=== PATIENT | female | born 1950 | race Caucasian/White ===

== ENCOUNTER 2017-05-27 13:45 | Outpatient (CLI) | payer BC ==
[2017-05-27 17:49] LABS: BILIRUBIN,URINE NEGATIVE (NEGATIVE)
[2017-05-27 17:57] LABS: UA w/ MICROSCOPIC CHARGE YES
[2017-05-27 18:29] LABS: UR CULTURE IF IND INDICATED; WBC,URINE 0-3 /HPF (0-5)
== END 2017-05-27 13:46 | disposition home or self-care (01) ==
LOC: LAB.F 13:45
PROVIDERS: ATTEND Internal Medicine
DX: I10 Essential (primary) hypertension (principal)
CPT/HCPCS: 81001; 81003; 82043; 82570; 87086

== ENCOUNTER 2017-06-21 12:55 | Outpatient (CLI) | payer MEDICARE, OTHER ==
--- NOTE | 2017-06-21 14:26 | MRI Report ---
EXAM: MRI CERVICAL SPINE WITHOUT CONTRAST EXAM DATE: 06/21/2017 01:38 PM. CLINICAL HISTORY: NECK PAIN. COMPARISONS: None. TECHNIQUE: Multiplanar, multisequence T1-weighted and fluid-sensitive sequences of the cervical spine without contrast. Other: None. FINDINGS: Neurologic Structures: The visualized posterior fossa structures are unremarkable. No signal abnormal ity in the visualized spinal cord. Alignment: Grade 1 anterolisthesis C6 on C7 measuring 2 mm. Bone Marrow: No gross fractures or bone lesions. No marrow edema. Interspace Levels/Facets: C1-C2: Unremarkable. C2-C3: Unremarkable. C3-C4: Unremarkable. C4-C5: Moderate left facet arthropathy. Minimal disk bulge with mild anterior neural compression. Mil d to moderate left neuroforaminal narrowing. No right neuroforaminal narrowing. No central canal narr owing. C5-C6: Mild diffuse disk bulge. Mild anterior neural compression. Moderate right and nwli-lb-wmlxgyol left facet arthropathy. Mild bilateral neuroforaminal narrowing. No significant central canal narrow ing. C6-C7: Moderate diffuse disk bulge with superimposed right subarticular protrusion. Mild central andrew l narrowing with mild flattening of the cord. Moderate right lateral recess narrowing. Mild right brandie roforaminal narrowing. No left neuroforaminal narrowing. C7-T1: Unremarkable. Musculature: Normal. No edema or fatty atrophy. Other: The paravertebral and prevertebral soft tissues are normal. IMPRESSION: 1. Mild multilevel degenerative spondylosis, as detailed above, mainly affecting level CIV-C5 through C6-C7. Mild central canal narrowing and moderate right lateral recess narrowing at C6-C7 level. No s ignificant central narrowing at other cervical levels. 2. Wfur-ui-ruhpgtav left neuroforaminal narrowing at C4-C5 level. Mild bilateral neuroforaminal narro wing at C5-C6 level. Mild right neuroforaminal narrowing at C6-C7 level. No significant cervical neur oforaminal narrowing otherwise. [facility] Referring Provider Line: [phone] SITE ID: [id number]
== END 2017-06-21 12:56 | disposition home or self-care (01) ==
LOC: DI 12:55
PROVIDERS: ATTEND Internal Medicine
DX: M54.2 Cervicalgia (principal); M47.892 Other spondylosis, cervical region; M48.02 Spinal stenosis, cervical region; M99.51 Intervertebral disc stenosis of neural canal of cervical region
CPT/HCPCS: 72141

== ENCOUNTER 2017-06-21 13:09 | Outpatient (CLI) | payer MEDICARE, OTHER ==
--- NOTE | 2017-06-22 13:16 | Mammography Report ---
DIGITAL SCREENING MAMMOGRAM: 06/21/2017 CLINICAL INDICATION: A 66-year-old nulliparous patient with history of left breast cancer status pos t lumpectomy and radiation therapy. COMPARISON: 05/2016, 06/2015, 01/2015, 05/2014, 05/2013, 03/2012, 04/2011, 01/2010 TECHNIQUE: Routine CC and MLO projections were obtained of the breasts. FINDINGS: The breasts again demonstrate heterogeneously dense fibroglandular parenchyma bilaterally. Coarse and punctate, typically benign calcifications are present. Postoperative and post-treatment changes are stable. No suspicious masses, clustered microcalcifications, or regions of architectura l distortion are identified. IMPRESSION: BENIGN FINDINGS. RECOMMENDATION: Routine annual screening unless otherwise clinically indicated. BIRADS CATEGORY 2 - BENIGN FINDINGS. STANDARD QUALIFYING STATEMENTS 1. This examination was reviewed with the aid of Computer-Aided Detection (CAD). 2. A negative or benign imaging report should not delay biopsy if clinically suspicious findings are present. Consider surgical consultation if warranted. More than 5% of cancers are not identified by i maging. 3. Dense breasts may obscure an underlying neoplasm. JOB #: [id number] EXT JOB #:[id number]
== END 2017-06-21 13:10 | disposition home or self-care (01) ==
LOC: DI 13:09
PROVIDERS: ATTEND Internal Medicine
DX: Z12.31 Encounter for screening mammogram for malignant neoplasm of breast (principal); Z85.3 Personal history of malignant neoplasm of breast; Z92.3 Personal history of irradiation
CPT/HCPCS: 77067

== ENCOUNTER 2017-07-06 10:45 | Outpatient (CLI) | payer MEDICARE, OTHER ==
--- NOTE | 2017-07-06 16:58 | XRAY Report ---
CERVICAL SPINE: 07/06/2017 CLINICAL HISTORY: Neck pain. FINDINGS: Lateral views of the cervical spine are performed in neutral, flexion , and extension with comparison to the MRI of the cervical spine from 2016. There is grade I anterolisthesis of C3 on C4, C5 on C6 and C6 on C7. The disk space heights are grossly well maintained. The vertebral body offsets reduce in extension. There is approximately 2 mm of anterior motion of C3 on C4, C4 on C5 , C5 on C6 and C6 on C7 in flexion, within accepable range. IMPRESSION: NO ABNORMAL MOTION BETWEEN FLEXION AND EXTENSION. JOB #: [id number] EXT JOB #: [id number] [facility]ITALCurtis
== END 2017-07-06 10:46 | disposition home or self-care (01) ==
LOC: DI 10:45
PROVIDERS: ATTEND Physician Assistant Surgical
DX: M54.2 Cervicalgia (principal)
CPT/HCPCS: 72040

== ENCOUNTER 2018-02-01 12:11 | Outpatient (CLI) | payer MEDICARE, OTHER ==
--- NOTE | 2018-02-01 12:55 | XRAY Report ---
THREE VIEW RIGHT ANKLE: 02/01/2018 CLINICAL INDICATION: Trauma, pain. FINDINGS: AP, lateral, oblique views of the right ankle demonstrate no evidence of fracture or dislocation. No effusion is present. No foreign body is seen in the soft tissues. IMPRESSION: NO EVIDENCE OF FRACTURE. TD: 02/01/2018 12:54
--- NOTE | 2018-02-01 13:06 | XRAY Report ---
THREE VIEW RIGHT FOOT: 02/01/2018 CLINICAL INDICATION: Pain. FINDINGS: AP, lateral, oblique views of the right foot demonstrate mild osteoarthritis of the first metatarsophalangeal joint, with mild hallux valgus. There is no evidence of acute fracture or dislocation. No foreign body is seen in the soft tissues. IMPRESSION: MILD OSTEOARTHRITIS, WITH HALLUX VALGUS. NO EVIDENCE OF ACUTE FRACTURE. TD: 02/01/2018 13:05
== END 2018-02-01 12:12 | disposition home or self-care (01) ==
LOC: DI 12:11
PROVIDERS: ATTEND Internal Medicine
DX: M19.071 Primary osteoarthritis, right ankle and foot (principal); M20.11 Hallux valgus (acquired), right foot

== ENCOUNTER 2018-04-10 13:12 | Outpatient (CLI) | END 2018-04-10 13:13 | disposition home or self-care (01) ==

== ENCOUNTER 2018-05-15 14:26 | Outpatient (CLI) | payer MEDICARE, OTHER ==
--- NOTE | 2018-05-15 16:35 | MRI Report ---
Procedure Date: 05/15/2018 Accession Number: [id number] / [id number] Procedure: MRI - Cervical Spine W/O CPT Code: FULL RESULT: EXAM: MRI CERVICAL SPINE WITHOUT CONTRAST EXAM DATE: 05/15/2018 02:59 PM. CLINICAL HISTORY: Chronic neck pain. COMPARISONS: CERVICAL SPINE W/O 06/21/2017. TECHNIQUE: Multiplanar, multisequence T1-weighted and fluid-sensitive sequences of the cervical spine without contrast. Other: None. FINDINGS: Alignment: There is flattening of the cervical lordosis. There is a 2 mm anterolisthesis at C6-C7. Neurologic Structures: The visualized posterior fossa structures are unremarkable. There is mild effacement of the ventral surface of the sac and cord at C6-C7. Bone Marrow: There is marrow edema in the articular processes of the C5-C6 and C6-C7 facet joints on the left. Interspace Levels/Facets: C1-C2: Unremarkable. C2-C3: Mild bilateral facet joint osteoarthritis. Neural foramina are patent. C3-C4: Moderate right and mild left facet joint osteoarthritis. Mild right and minimal left foraminal narrowing. C4-C5: There is moderate left and mild right facet joint osteoarthritis. There is moderate left and mild right foraminal narrowing. C5-C6: There is mild bilateral facet joint osteoarthritis. There is mild bilateral foraminal narrowing. C6-C7: There is a broad-based posterior disk osteophyte complex. There is moderate left and mild right facet joint osteoarthritis. The findings cause mild canal narrowing. There is a moderate-sized left-sided facet joint effusion. There is severe left and mild right foraminal narrowing. C7-T1: There is mild bilateral facet joint osteoarthrosis. The canal and foramina are patent. Musculature: Normal. No edema or fatty atrophy. Other: The paravertebral and prevertebral soft tissues are normal. IMPRESSION: 1. Multilevel facet joint degeneration. 2. Mild canal narrowing at C6-C7. 3. Facet joint osteoarthritis causes moderate left foraminal narrowing at C4-C5, and severe left foraminal narrowing at C6-C7. [facility]
== END 2018-05-15 14:27 | disposition home or self-care (01) ==
LOC: DI 14:26
PROVIDERS: ATTEND Internal Medicine
DX: M47.892 Other spondylosis, cervical region (principal); M48.02 Spinal stenosis, cervical region
CPT/HCPCS: 72141

== ENCOUNTER 2018-06-14 08:15 | Outpatient (CLI) | payer MEDICARE, OTHER ==
--- NOTE | 2018-06-15 17:55 | MRI Report ---
Reason: MYELOPATHY Procedure Date: 06/14/2018 Accession Number: [id number] / [id number] Procedure: MRI - Brain W/O CPT Code: FULL RESULT: EXAM: MRI BRAIN WITHOUT CONTRAST EXAM DATE: 06/14/2018 09:05 AM. CLINICAL HISTORY: Myelopathy. COMPARISON: CT head 05/25/2015, MR cervical spine 05/15/2018. TECHNIQUE: Multiplanar, multisequence T1-weighted and fluid-sensitive MR sequences of the brain were performed. Sequences optimized for routine evaluation. Other: None. IV Contrast: None. FINDINGS: Diffusion weighted sequence shows no evidence for acute infarct. There is no mass, mass effect, midline shift or abnormal extraaxial fluid collection. Size and configuration of the ventricles are normal. Mild prominence of the cerebral sulci bilaterally compatible with mild diffuse cerebral volume loss. There is a nonspecific T2 hyperintensity in the periventricular right frontal lobe measuring 7.3 mm. Ill-defined symmetric T2 hyperintensity in the peritrigonal parietal periventricular white matter demonstrated, most likely chronic microvascular angiopathy. Brainstem and cerebellum appear normal. Major intracranial flow voids appear normal. Globes, orbits, optic nerve sheath complex, optic chiasm, pituitary, cavernous sinus and Meckel's cave appear normal. Paranasal sinuses and mastoid air cells appear well aerated. Marrow signal and extracranial soft tissue appear normal. Craniocervical junction and visualized upper cervical cord appear unremarkable. IMPRESSION: 1. Mild diffuse cerebral loss. 2. Focal asymmetric nonspecific T2 hyperintensity in the periventricular right frontal white matter. Ill-defined symmetric nonspecific periventricular parietal white matter T2 hyperintensity. These most likely represents chronic microvascular angiopathy. 3. No acute abnormalities. [facility]
== END 2018-06-14 08:16 | disposition home or self-care (01) ==
LOC: DI 08:15
PROVIDERS: ATTEND Neurological Surgery
DX: G95.9 Disease of spinal cord, unspecified (principal); H53.2 Diplopia
CPT/HCPCS: 70551

== ENCOUNTER 2018-07-05 09:46 | Outpatient (CLI) | payer MEDICARE, OTHER ==
--- NOTE | 2018-07-14 14:12 | Mammography Report ---
Reason: ROUTINE BILAT SCREENING WITH KASSIE Procedure Date: 07/05/2018 Accession Number: [id number] / [id number] Procedure: BRENT - Screening Mammo w/Kassie CPT Code: FULL RESULT: EXAM: Screening Mammo w/Kassie DATE: 07/05/2018 10:37 AM CLINICAL HISTORY: 67-year-old female with personal history of left breast cancer status post lumpectomy and radiation. TECHNIQUE: Bilateral CC and MLO views were obtained. COMPARISON: 02/06/2015, 06/06/2014, 06/14/2016, 06/21/2017. FINDINGS: The breasts demonstrate heterogeneously dense fibroglandular parenchyma bilaterally. Postsurgical changes are seen in the left breast. Coarse typically benign calcifications are seen bilaterally. No suspicious masses, clustered microcalcifications, or regions of architectural distortion are identified. IMPRESSION: Benign findings RECOMMENDATION: Routine annual screening unless otherwise clinically indicated. BIRADS CATEGORY 2: Benign findings STANDARD QUALIFYING STATEMENTS: 1. This examination was not reviewed with the aid of Computer-Aided Detection (CAD). 2. A negative or benign imaging report should not delay biopsy if clinically suspicious findings are present. Consider surgical consultation if warrented. More than 5% of cancers are not identified by imaging. 3. Dense breasts may obscure an underlying neoplasm. 4. This examination was reviewed with the aid of 3D breast imaging (tomosynthesis).
== END 2018-07-05 09:47 | disposition home or self-care (01) ==
LOC: DI 09:46
PROVIDERS: ATTEND Internal Medicine
DX: Z12.31 Encounter for screening mammogram for malignant neoplasm of breast (principal); Z85.3 Personal history of malignant neoplasm of breast
CPT/HCPCS: 77063; 77067

== ENCOUNTER 2018-07-27 08:00 | Outpatient (CLI) | payer MEDICARE, OTHER ==
[2018-07-27 18:02] LABS: CALCIUM 9.3 mg/dL (8.5-10.3); CREATININE 0.6 mg/dL (0.4-1.0)
== END 2018-07-27 08:01 | disposition home or self-care (01) ==
LOC: LAB.F 08:00
PROVIDERS: ATTEND Internal Medicine
DX: E87.1 Hypo-osmolality and hyponatremia (principal); E03.9 Hypothyroidism, unspecified; Z79.899 Other long term (current) drug therapy
CPT/HCPCS: 36415; 80048; 84443

== ENCOUNTER 2019-02-07 10:55 | Outpatient (CLI) | payer MEDICARE, OTHER ==
[2019-02-07 11:20] LABS: CREATININE 0.6 mg/dL (0.4-1.0)
[2019-02-07] MEDS ORDERED: IOVERSOL 320 100 ML VIAL IVP ONE ×2 (11:29→12:48)
[2019-02-07] MEDS ORDERED: IOVERSOL 320 50 ML VIAL ONE (11:29)
[2019-02-07] MEDS ORDERED: IOVERSOL 320 50 ML VIAL PO ONE (12:56)
--- NOTE | 2019-02-07 13:32 | CT Report ---
Reason: ABD AND PELVIC PAIN Procedure Date: 02/07/2019 Accession Number: [id number] / [id number] Procedure: CT - Abdomen/Pelvis W CPT Code: FULL RESULT: EXAM: CT ABDOMEN AND PELVIS EXAM DATE: 02/07/2019 12:44 PM. CLINICAL HISTORY: Abdominal and pelvic pain. COMPARISONS: None. TECHNIQUE: Routine helical CT imaging was performed through the abdomen and pelvis. IV contrast: 150 mL Optiray 320. Enteric contrast: No. Reconstructions: Coronal and sagittal. In accordance with CT protocol optimization, one or more of the following dose reduction techniques were utilized for this exam: automated exposure control, adjustment of mA and/or KV based on patient size, or use of iterative reconstructive technique. FINDINGS: Lung Bases: Unremarkable. Liver: Normal. No masses. Gallbladder/Bile Ducts: Gallbladder appears unremarkable and there is no intrahepatic biliary ductal dilation. The extrahepatic biliary system is prominent, up to 1 cm without a stone detected. Spleen: Normal. Pancreas: Normal. Adrenal Glands: Normal. Kidneys: Normal. No masses or hydronephrosis. Peritoneal Cavity/Bowel: There is descending and sigmoid colonic diverticulosis. There is no bowel obstruction. There is no free fluid or free air. There is no lymphadenopathy. The appendix is well visualized and normal. Pelvic Organs: Normal. The bladder and visualized pelvic organs are within normal limits. Vasculature: No aneurysms or other significant abnormality. Bones: Status post L4-L5 fusion. No aggressive osseous lesion is detected. Other: None. IMPRESSION: Diverticulosis. Prominent extrahepatic biliary system without evidence of cholecystitis. [facility]
== END 2019-02-07 10:56 | disposition home or self-care (01) ==
LOC: DI 10:55
PROVIDERS: ATTEND Internal Medicine
DX: K57.30 Diverticulosis of large intestine without perforation or abscess without bleeding (principal); R10.9 Unspecified abdominal pain; R10.2 Pelvic and perineal pain; R14.0 Abdominal distension (gaseous)
CPT/HCPCS: 36415; 74177; 82565; Q9967

== ENCOUNTER 2019-02-16 09:58 | Outpatient (CLI) | payer MEDICARE, OTHER ==
[2019-02-16 10:26] LABS: BASOPHILS # (AUTO) 0.1 10^3/uL (0.0-0.1); BASOPHILS % (AUTO) 1.3 %; EOSINOPHILS # (AUTO) 0.4 10^3/uL (0.0-0.7); HGB - HEMOGLOBIN 14.3 g/dL (12.0-16.0); LYMPHOCYTES # (AUTO) 2.2 10^3/uL (1.5-3.5); LYMPHOCYTES % (AUTO) 25.1 %; MEAN CORPUSCULAR HEMOGLOBIN 32.9 pg (27.0-31.0); MEAN CORPUSCULAR HGB CONC 33.1 g/dL (32.0-36.0); MEAN CORPUSCULAR VOLUME 99.4 fL (81.0-99.0); MEAN PLATELET VOLUME 7.3 fL (7.9-10.8); MONOCYTES # (AUTO) 0.4 10^3/uL (0.0-1.0); MONOCYTES % (AUTO) 4.8 %; NEUTROPHILS # (AUTO) 5.6 10^3/uL (1.5-6.6); NEUTROPHILS % (AUTO) 63.8 %; PLT - PLATELET COUNT 260 10^3/uL (130-450); RED BLOOD COUNT 4.34 10^6/uL (4.20-5.40); RED CELL DISTRIBUTION WIDTH 13.4 % (12.0-15.0); WHITE BLOOD COUNT 8.8 x10^3/uL (4.8-10.8)
[2019-02-16 10:40] LABS: ALBUMIN/GLOBULIN RATIO 1.3 (1.0-2.2); BILIRUBIN,TOTAL 0.6 mg/dL (0.2-1.0); CALCIUM 9.3 mg/dL (8.5-10.3); CREATININE 0.5 mg/dL (0.4-1.0); TOTAL PROTEIN 7.2 g/dL (6.7-8.2)
== END 2019-02-16 09:59 | disposition home or self-care (01) ==
LOC: LAB 09:58
PROVIDERS: ATTEND Internal Medicine Gastroenterology
DX: I10 Essential (primary) hypertension (principal); Z86.010 Personal history of colon polyps
CPT/HCPCS: 36415; 80053; 85025; 93005

== ENCOUNTER 2019-02-22 07:26 | Day surgery (SDC) | payer MEDICARE, OTHER ==
[2019-02-22] MEDS ORDERED: LACTATED RINGERS 1,000 ML IV ONE ×2 (07:52→09:15)
[2019-02-22] MEDS ORDERED: MIDAZOLAM 2 MG/2 ML VIAL IVP ONE (08:41)
[2019-02-22] MEDS ORDERED: fentaNYL 250 MCG/5 ML VIAL IVP ONE (08:41)
[2019-02-22 09:59] VITALS: BP 112/75
== END 2019-02-22 07:27 | disposition home or self-care (01) ==
LOC: SDS 07:26
PROVIDERS: ATTEND Internal Medicine Gastroenterology
PROC: 0DBK8ZZ Excision of Ascending Colon, Via Natural or Artificial Opening Endoscopic (ICD-10-PCS; principal; 2019-02-22 08:45)
DX: R19.4 Change in bowel habit (principal); D12.2 Benign neoplasm of ascending colon; K64.8 Other hemorrhoids; K57.30 Diverticulosis of large intestine without perforation or abscess without bleeding; I10 Essential (primary) hypertension
CPT/HCPCS: 45380; J3010; J7120

== ENCOUNTER 2019-03-14 08:00 | Outpatient (CLI) | payer MEDICARE, OTHER ==
[2019-03-14 13:07] LABS: BASOPHILS # (AUTO) 0.1 10^3/uL (0.0-0.1); BASOPHILS % (AUTO) 0.8 %; EOSINOPHILS # (AUTO) 0.5 10^3/uL (0.0-0.7); HGB - HEMOGLOBIN 13.9 g/dL (12.0-16.0); LYMPHOCYTES # (AUTO) 2.2 10^3/uL (1.5-3.5); LYMPHOCYTES % (AUTO) 24.5 %; MEAN CORPUSCULAR HEMOGLOBIN 32.8 pg (27.0-31.0); MEAN CORPUSCULAR HGB CONC 33.6 g/dL (32.0-36.0); MEAN CORPUSCULAR VOLUME 97.6 fL (81.0-99.0); MEAN PLATELET VOLUME 7.1 fL (7.9-10.8); MONOCYTES # (AUTO) 0.5 10^3/uL (0.0-1.0); MONOCYTES % (AUTO) 5.4 %; NEUTROPHILS # (AUTO) 5.9 10^3/uL (1.5-6.6); NEUTROPHILS % (AUTO) 64.3 %; PLT - PLATELET COUNT 265 10^3/uL (130-450); RED BLOOD COUNT 4.24 10^6/uL (4.20-5.40); RED CELL DISTRIBUTION WIDTH 13.6 % (12.0-15.0); WHITE BLOOD COUNT 9.2 x10^3/uL (4.8-10.8)
[2019-03-14 13:21] LABS: ALBUMIN 4.2 g/dL (3.2-5.5); ALBUMIN/GLOBULIN RATIO 1.3 (1.0-2.2); BILIRUBIN,TOTAL 0.7 mg/dL (0.2-1.0); CREATININE 0.6 mg/dL (0.4-1.0); TOTAL PROTEIN 7.4 g/dL (6.7-8.2)
[2019-03-14 13:23] LABS: BILIRUBIN,URINE NEGATIVE (NEGATIVE); GLUCOSE, URINE (UA) NEGATIVE (NEGATIVE); KETONES,URINE (UA) 15 mg/dL (NEGATIVE); LEUKOCYTE ESTERASE, URINE NEGATIVE (NEGATIVE); NITRITE,URINE NEGATIVE (NEGATIVE); OCCULT BLOOD,URINE NEGATIVE (NEGATIVE); PROTEIN,URINE NEGATIVE (NEGATIVE); UROBILINOGEN,URINE 0.2 (NORMAL) E.U./dL (NORMAL)
[2019-03-14 13:34] LABS: CLARITY,URINE CLEAR (CLEAR)
== END 2019-03-14 23:59 | disposition home or self-care (01) ==
LOC: LAB 08:00
PROVIDERS: ATTEND Internal Medicine
DX: R50.9 Fever, unspecified (principal); R10.9 Unspecified abdominal pain
CPT/HCPCS: 36415; 80053; 81001; 81003; 85025; 87040; 87086

== ENCOUNTER 2019-03-14 12:40 | Outpatient (CLI) | payer MEDICARE, OTHER ==
[2019-03-14] MEDS ORDERED: IOVERSOL 320 50 ML VIAL ONE (12:52)
[2019-03-14] MEDS ORDERED: IOVERSOL 320 100 ML VIAL IVP ONE ×2 (12:52→14:09)
--- NOTE | 2019-03-14 14:39 | CT Report ---
Reason: ABDOMINAL PAIN,FEVER Procedure Date: 03/14/2019 Accession Number: [id number] / [id number] Procedure: CT - Abdomen/Pelvis W CPT Code: FULL RESULT: EXAM: CT ABDOMEN AND PELVIS EXAM DATE: 03/14/2019 02:06 PM. CLINICAL HISTORY: ABDOMINAL PAIN,FEVER. COMPARISONS: ABDOMEN/PELVIS W/ 02/07/2019 12:35 PM. TECHNIQUE: Routine helical CT imaging was performed through the abdomen and pelvis. IV contrast: . Enteric contrast: No. Reconstructions: Coronal and sagittal. In accordance with CT protocol optimization, one or more of the following dose reduction techniques were utilized for this exam: automated exposure control, adjustment of mA and/or KV based on patient size, or use of iterative reconstructive technique. FINDINGS: Lung Bases: Unremarkable. Liver: Normal. No masses. Gallbladder/Bile Ducts: Unremarkable. Spleen: Normal. Pancreas: Normal. Adrenal Glands: Normal. Kidneys: And ill-defined hypodense subcentimeter lesion in the superior pole of left kidney measuring 8 mm, unchanged since [id number]. Hemorrhagic cyst versus solid neoplasm. Further correlation to be performed on ultrasound kidney. No masses or hydronephrosis. Peritoneal Cavity/Bowel: Normal. No free fluid, free air or adenopathy. No masses or acute inflammatory process. The appendix is well visualized, contrast-filled and normal. Diffuse colonic diverticulosis however no diverticulitis. Pelvic Organs: Normal. The bladder and visualized pelvic organs are within normal limits. Vasculature: No aneurysms or other significant abnormality. Bones: Status post posterior fusion at L4-L5 with well-positioned hardware. No acute displaced fracture or malalignment. Other: None. IMPRESSION: No acute abdominal pathology. Diffuse colonic diverticulosis however no diverticulitis. Normal contrast fills appendix. An unchanged 8 mm indeterminate lesion in superior pole of left kidney, hemorrhagic cyst versus solid neoplasm. Further evaluation to be considered on renal ultrasound. [facility]
== END 2019-03-14 12:41 | disposition home or self-care (01) ==
LOC: DI 12:40
PROVIDERS: ATTEND Internal Medicine
DX: R10.9 Unspecified abdominal pain (principal); K57.30 Diverticulosis of large intestine without perforation or abscess without bleeding; N28.9 Disorder of kidney and ureter, unspecified; R50.9 Fever, unspecified
CPT/HCPCS: 36415; 74177; 80053; 81003; 85025; 87040; Q9967; 81001; 87086

== ENCOUNTER 2019-03-24 10:12 | Outpatient (CLI) | payer MEDICARE, OTHER ==
--- NOTE | 2019-03-24 23:22 | Ultrasound Report ---
Reason: ABNORMAL RADIOLOGIC FINDINGS ON DX IMAGING OF LEFT Procedure Date: 03/24/2019 Accession Number: [id number] / [id number] Procedure: US - Retroperitoneal CPT Code: FULL RESULT: EXAM: RENAL ULTRASOUND EXAM DATE: 03/24/2019 11:31 AM. CLINICAL HISTORY: Abnormal radiologic findings on diagnostic imaging of left. COMPARISON: ABDOMEN/PELVIS W03/14/2019 2:00 PM. TECHNIQUE: Real-time scanning was performed with static images obtained. FINDINGS: Right Kidney: 10.0 x 4.7 x 5.2 cm. Normal echotexture with no stones, contour-deforming masses, or hydronephrosis. Left Kidney: 10.1 x 5.4 x 4.8 cm. Normal echotexture with no stones, contour-deforming masses, or hydronephrosis. 1.1 x 0.9 x 0.8 cm exophytic simple left upper renal cyst. Bladder: Bilateral jets seen. The prevoid bladder volume was 152.7 cc. The postvoid bladder volume was 54.3 cc. Other: None. IMPRESSION: 1. 1.1 cm exophytic simple left upper renal cyst. 2. No renal mass, stone or hydronephrosis. 3. Normal bladder. 54.3 cc of postvoid residual. [facility]
== END 2019-03-24 10:13 | disposition home or self-care (01) ==
LOC: DI 10:12
PROVIDERS: ATTEND Internal Medicine
DX: N28.1 Cyst of kidney, acquired (principal)
CPT/HCPCS: 76770

== ENCOUNTER 2019-04-26 08:38 | Day surgery (SDC) | payer MEDICARE, OTHER ==
[~2019-04-26 08:38] MED LIST: BRIMONIDINE 0.2% OPHTH DROPS 5 ML ONE; BSS/LIDOCAINE/EPINEPHRINE 1 ML SYRINGE ONE; CYCLOPENTOLATE 1% OPHTH DROPS 2 ML ONE; KETOROLAC 0.45% OPHTH DROPS ONE; PHENYLEPHRINE 2.5% OPHTH 2 ML DROPS ONE; PROPARACAINE 0.5% OPHTH DROPS 15 ML ONE; TIMOLOL 0.5% OPHTH DROPS ONE; TRIAMCIN/MOXIFLOX OPHTHALMIC 0.6 ML VIAL IO ONE; VANCOMYCIN OPHTHALMI 8MG/0.8ML 8 MG/0.8 ML SYRINGE IO ONE
[2019-04-26] MEDS ORDERED: CYCLOPENTOLATE 1% OPHTH DROPS 2 ML RIGHTEYE ONE (09:10)
[2019-04-26] MEDS ORDERED: PHENYLEPHRINE 2.5% OPHTH 2 ML DROPS RIGHTEYE ONE (09:10)
[2019-04-26] MEDS ORDERED: PROPARACAINE 0.5% OPHTH DROPS 15 ML RIGHTEYE ONE (09:10)
[2019-04-26] MEDS ORDERED: KETOROLAC 0.45% OPHTH DROPS RIGHTEYE ONE (09:10)
[2019-04-26] MEDS ORDERED: LACTATED RINGERS 500 ML IV ONE (09:13)
--- NOTE | 2019-04-26 09:35 | ANESTHESIA ---
Pre-Anesthesia VS, & Labs - Diagnosis right senile combined cataract - Procedure cataract extraction with intraocular implant right eye Vital Signs: Temp Pulse Resp BP Pulse Ox 36.8 C 72 16 138/72 H 97 04/26/19 09:01 04/26/19 09:01 04/26/19 09:01 04/26/19 09:01 04/26/19 09:01 Height 5 ft 3 in Weight (kg) 53.5 kg - NPO >8 hours - Is Patient ?: No Home Medications and Allergies Levothyroxine [Synthroid] 50 mcg PO DAILY 05/25/15 Lovastatin 40 mg PO DAILY 05/25/15 LORazepam [Lorazepam] 0.5 mg PO DAILY PRN 08/19/15 Ascorbic Acid [Vitamin C] 1,000 mg PO DAILY 02/22/19 Aspirin [Aspirin EC] 81 mg PO DAILY 02/22/19 Baclofen 10 mg PO TID 02/22/19 Calcium Carbonate/Vitamin D3 [Calcium 600-Vit D3 800 Tablet] 1 each PO DAILY 02/22/19 Gabapentin 100 mg PO TID 02/22/19 Lisinopril 40 mg PO DAILY 02/22/19 Multivitamin [Multiple Vitamins] 1 each PO DAILY 02/22/19 [place]el[place]-3S/Dha/Epa/Fish Oil [Fish Oil 1,200 mg Softgel] 1 each PO DAILY 02/22/19 Allergies/Adverse Reactions: Allergies Allergy/AdvReac Type Severity Reaction Status Date / Time No Known Drug Allergies Allergy Verified 02/22/19 07:53 Anes History & Medical History - Anesthetic History Anesthesia Complications: reports: No previous complications - Medical History Cardiovascular: reports: High cholesterol (controlled with meds) Pulmonary: reports: None Gastrointestinal: reports: None Urinary: reports: None Neuro: reports: Headaches, Other ( bilateral occipital neuralgia) Musculoskeletal: reports: None Endocrine/Autoimmune: reports: HyPOthyroidism Blood Disorders: reports: None Skin: reports: None Smoking Status: Former smoker (quit 10 years ago) Psychosocial: reports: Alcohol (1-2 beers per day) - Surgical History General: Colonoscopy Eyes Ears Nose Throat (EENT): Tonsil/Adenoidectomy Gynecologic: Hysterectomy Exam General: Alert, Oriented x3, Cooperative, No acute distress Dental: WNL Mouth Openin Fingerbreadth Neck Mobility: Normal Mallampati classification: II Thyromental Distance: greater than 6 cm Respiratory: Lungs clear, Normal breath sounds, No respiratory distress, No accessory muscle use Cardiovascular: Regular rate, Normal S1, Normal S2, No murmurs Mental/Cognitive Status: Alert/Oriented X3, Normal for patient Plan Anesthesia Type: MAC Consent for Procedure(s) Verified and Reviewed: Yes Code Status: Attempt Resuscitation ASA classification: 2-Mild systemic disease Is this case an emergency?: No
[2019-04-26] MEDS ORDERED: MIDAZOLAM 2 MG/2 ML VIAL IVP ONE (09:46)
[2019-04-26] MEDS ORDERED: fentaNYL 100 MCG/2 ML VIAL IVP ONE (09:46)
[2019-04-26] MEDS ORDERED: EPINEPHrine 1 MG/ML AMP IVP ONE (09:52)
[2019-04-26] MEDS ORDERED: BRIMONIDINE 0.2% OPHTH DROPS 5 ML OPTH ONE (09:52)
[2019-04-26] MEDS ORDERED: BSS/LIDOCAINE/EPINEPHRINE 1 ML SYRINGE IO ONE (09:52)
[2019-04-26] MEDS ORDERED: CHONDR SULF/HYALURONATE SYRINGE IO ONE (09:52)
[2019-04-26] MEDS ORDERED: TIMOLOL 0.5% OPHTH DROPS OPTH ONE (09:52)
[2019-04-26] MEDS ORDERED: TRIAMCIN/MOXIFLOX OPHTHALMIC 0.6 ML VIAL IO ONE (09:53)
[2019-04-26] MEDS ORDERED: VANCOMYCIN OPHTHALMI 8MG/0.8ML 8 MG/0.8 ML SYRINGE IO ONE (09:53)
[2019-04-26 10:22] VITALS: BP 126/73
--- NOTE | 2019-04-26 10:34 | OPERATIVE REPORT ---
DATE OF SERVICE: 04/26/2019 Physician: Hal Espitia MD PREOPERATIVE DIAGNOSIS: Visually significant cataract, right eye. This was her first cataract surge ry. POSTOPERATIVE DIAGNOSIS: Visually significant cataract, right eye. This was her first cataract surg giovani. DESCRIPTION OF PROCEDURE: Phacoemulsification with posterior chamber intraocular lens implant, right eye. SURGEON: Hal Espitia MD ANESTHESIA: Monitored anesthesia care. COMPLICATIONS: None. OPERATIVE INDICATIONS: This is a 68-year-old woman with progressive vision loss in the right eye due to 2+ nuclear sclerotic and 2-3+ cortical cataract. Best corrected visual acuity was 20/30 with gla re to 20/200 in the right eye. Indications for surgery are overall decrease in vision, difficulty se eing words on the computer screen, difficulty reading, difficulty seeing street signs and difficulty with glare or bright lights in any situation. She was consented at length concerning the risks and b enefits of cataract surgery, after which she expressed a desire to proceed with surgery. OPERATIVE PROCEDURE: The patient was taken into OR #3 and placed under monitored anesthesia care. S urgical timeout was conducted confirming the correct patient, correct procedure, and correct surgical site. She was given topical anesthesia, and then prepped and draped in the usual sterile fashion. The eye was entered at the 12 and 9 o'clock positions. Intracameral Shugarcaine was injected into th e anterior chamber, followed by Viscoat. A continuous-tear curvilinear capsulorrhexis was performed. The nucleus was hydrodissected and phacoemulsified. The cortex was evacuated using automated infus ion and aspiration. Provisc was injected in the capsular bag, and a 19.0 diopter intraocular lens wa s inserted into the bag. Approximately 0.8 mL of a mixture of triamcinolone, moxifloxacin, and vanco mycin was injected subconjunctivally in the superior quadrant for infection and inflammation prophyla xis. I and A was used to evacuate the viscoelastic materials. The eye was inflated to physiologic p ressure using a balanced salt solution and found to be watertight. The patient was taken from the op erating room in good condition and given postoperative instructions. TD: 04/26/2019 10:14
== END 2019-04-26 08:39 | disposition home or self-care (01) ==
LOC: SDS 08:38
PROVIDERS: ATTEND Ophthalmology
PROC: 08RJ3JZ Replacement of Right Lens with Synthetic Substitute, Percutaneous Approach (ICD-10-PCS; principal; 2019-04-26 10:30)
DX: H25.811 Combined forms of age-related cataract, right eye (principal); I10 Essential (primary) hypertension; G58.8 Other specified mononeuropathies; M54.81 Occipital neuralgia; E78.00 Pure hypercholesterolemia, unspecified; E03.9 Hypothyroidism, unspecified; Z79.899 Other long term (current) drug therapy; Z87.891 Personal history of nicotine dependence
CPT/HCPCS: 66984; A9270; J3490; V2632

== ENCOUNTER 2019-06-07 08:50 | Day surgery (SDC) | payer MEDICARE, OTHER ==
[~2019-06-07 08:50] MED LIST changes: +EPINEPHrine 1 MG/ML AMP ONE
[2019-06-07] MEDS ORDERED: CYCLOPENTOLATE 1% OPHTH DROPS 2 ML LEFTEYE ONE (09:10)
[2019-06-07] MEDS ORDERED: KETOROLAC 0.45% OPHTH DROPS LEFTEYE ONE (09:10)
[2019-06-07] MEDS ORDERED: PROPARACAINE 0.5% OPHTH DROPS 15 ML LEFTEYE ONE ×2 (09:10→09:51)
[2019-06-07] MEDS ORDERED: PHENYLEPHRINE 2.5% OPHTH 2 ML DROPS LEFTEYE ONE (09:10)
[2019-06-07] MEDS ORDERED: LACTATED RINGERS 500 ML IV ONE (09:17)
--- NOTE | 2019-06-07 09:27 | ANESTHESIA ---
Pre-Anesthesia VS, & Labs - Diagnosis Left senile combined cataract - Procedure Left phaco with IOL implant Vital Signs: Temp Pulse Resp BP Pulse Ox 37.0 C 72 16 128/80 97 06/07/19 09:01 06/07/19 09:01 06/07/19 09:01 06/07/19 09:01 06/07/19 09:01 Height 5 ft 3 in Weight (kg) 53.6 kg - NPO >8 hours - Is Patient ?: No, Not Applicable - Lab Results Lab results reviewed: No Home Medications and Allergies Levothyroxine [Synthroid] 50 mcg PO DAILY 05/25/15 Lovastatin 40 mg PO DAILY 05/25/15 LORazepam [Lorazepam] 0.5 mg PO BID 08/19/15 Ascorbic Acid [Vitamin C] 1,000 mg PO DAILY 02/22/19 Aspirin [Aspirin EC] 81 mg PO DAILY 02/22/19 Calcium Carbonate/Vitamin D3 [Calcium 600-Vit D3 800 Tablet] 1 each PO DAILY 02/22/19 Gabapentin 100 mg PO TID 02/22/19 Lisinopril 40 mg PO DAILY 02/22/19 Multivitamin [Multiple Vitamins] 1 each PO DAILY 02/22/19 [place]-3S/Dha/Epa/Fish Oil [Fish Oil 1,200 mg Softgel] 1 each PO DAILY 02/22/19 Allergies/Adverse Reactions: Allergies Allergy/AdvReac Type Severity Reaction Status Date / Time No Known Drug Allergies Allergy Verified 02/22/19 07:53 Anes History & Medical History - Anesthetic History Anesthesia Complications: reports: No previous complications Family history of Anesthesia Complications: Denies Family history of Malignant Hyperthermia: Denies - Medical History Cardiovascular: reports: Hypertension, High cholesterol Pulmonary: reports: None Gastrointestinal: reports: None Urinary: reports: None Neuro: reports: Headaches, Other ( bilateral occipital neuralgia) Musculoskeletal: reports: None Endocrine/Autoimmune: reports: HyPOthyroidism Blood Disorders: reports: None Skin: reports: None Smoking Status: Former smoker (quit 10 years ago) Psychosocial: reports: No issues indicated - Surgical History General: Colonoscopy Eyes Ears Nose Throat (EENT): Tonsil/Adenoidectomy Gynecologic: Hysterectomy Exam General: Alert, Oriented x3 Dental: WNL Mouth Opening: Greater than 4 Fingerbreadths Neck Mobility: Normal Mallampati classification: I Thyromental Distance: greater than 6 cm Respiratory: Lungs clear Cardiovascular: Regular rate Mental/Cognitive Status: Alert/Oriented X3 Cognitive Status: Within normal limits Plan Anesthesia Type: MAC Consent for Procedure(s) Verified and Reviewed: Yes Code Status: Attempt Resuscitation ASA classification: 2-Mild systemic disease Is this case an emergency?: No
[2019-06-07] MEDS ORDERED: fentaNYL 100 MCG/2 ML VIAL IVP ONE (09:45)
[2019-06-07] MEDS ORDERED: MIDAZOLAM 2 MG/2 ML VIAL IVP ONE (09:45)
[2019-06-07] MEDS ORDERED: BRIMONIDINE 0.2% OPHTH DROPS 5 ML OPTH ONE (09:50)
[2019-06-07] MEDS ORDERED: EPINEPHrine 1 MG/ML AMP IVP ONE (09:50)
[2019-06-07] MEDS ORDERED: VANCOMYCIN OPHTHALMI 8MG/0.8ML 8 MG/0.8 ML SYRINGE IO ONE (09:51)
[2019-06-07] MEDS ORDERED: BSS/LIDOCAINE/EPINEPHRINE 1 ML SYRINGE IO ONE (09:51)
[2019-06-07] MEDS ORDERED: TIMOLOL 0.5% OPHTH DROPS OPTH ONE (09:51)
[2019-06-07] MEDS ORDERED: CHONDR SULF/HYALURONATE SYRINGE IO ONE (09:51)
[2019-06-07] MEDS ORDERED: TRIAMCIN/MOXIFLOX OPHTHALMIC 0.6 ML VIAL IO ONE (09:52)
--- NOTE | 2019-06-07 10:16 | OPERATIVE REPORT ---
DATE OF SERVICE: 06/07/2019 Physician: Hal Espitia MD PREOPERATIVE DIAGNOSIS: Visually significant cataract, left eye. Cataract surgery was performed on the right eye on 04/26/2019. POSTOPERATIVE DIAGNOSIS: Visually significant cataract, left eye. Cataract surgery was performed on the right eye on 04/26/2019. PROCEDURE: Phacoemulsification with posterior chamber intraocular lens implant, left eye. SURGEON: Hal Espitia MD ANESTHESIA: Monitored anesthesia care. COMPLICATIONS: None. OPERATIVE INDICATIONS: This is a 68-year-old woman with progressive vision loss in the left eye due to 2+ nuclear sclerotic and 2+ cortical cataract. Best corrected visual acuity was 20/30 with glare to 20/160 in the left eye. Indications for surgery were difficulty seeing words on a computer screen , difficulty reading and difficulty driving in low light or at night. She was consented at length co ncerning risks and benefits of cataract surgery, after which she expressed a desire to proceed with s hortenciaery. OPERATIVE PROCEDURE: The patient was taken to OR #2 and placed under monitored anesthesia care. Teodora gical timeout was conducted confirming correct patient, correct procedure, and correct surgical site. She was given topical anesthesia, and prepped and draped in the usual sterile fashion. The eye was entered at the 6 and 3 o'clock positions. Intracameral Shugarcaine was injected into the anterior c hamber, followed by Viscoat. A continuous-tear curvilinear capsulorrhexis was performed. The nucleu s was hydrodissected and phacoemulsified. The cortex was evacuated using automated infusion and aspi ration. Provisc was injected in the capsular bag, and a 20.0 diopter intraocular lens inserted in th e bag. Approximately 0.8 mL of a mixture of triamcinolone, moxifloxacin and vancomycin was injected subconjunctivally in the superior quadrant for infection and inflammation prophylaxis. I and A, was used to evacuate the viscoelastic materials. The eye was inflated to physiologic pressure using devaughn nced salt solution and found to be watertight. The patient was taken from the operating room in good condition and given postoperative instructions. TD: 06/07/2019 10:11
[2019-06-07 10:26] VITALS: BP 114/72
== END 2019-06-07 08:51 | disposition home or self-care (01) ==
LOC: SDS 08:50
PROVIDERS: ATTEND Ophthalmology
PROC: 08RK3JZ Replacement of Left Lens with Synthetic Substitute, Percutaneous Approach (ICD-10-PCS; principal; 2019-06-07 10:00)
DX: H25.812 Combined forms of age-related cataract, left eye (principal); I10 Essential (primary) hypertension; M54.81 Occipital neuralgia; R51 Headache; Z85.3 Personal history of malignant neoplasm of breast; Z87.891 Personal history of nicotine dependence
CPT/HCPCS: 66984; A9270; J3490; V2632

== ENCOUNTER 2019-07-10 13:18 | Outpatient (CLI) | payer MEDICARE, OTHER ==
--- NOTE | 2019-07-11 08:59 | Mammography Report ---
Reason: SCREENING MAMMO Procedure Date: 07/10/2019 Accession Number: [id number] / [id number] Procedure: BRENT - Screening Mammo w/Joseph CPT Code: FULL RESULT: EXAM: Screening Mammo w/Joseph DATE: 07/10/2019 1:45 PM CLINICAL HISTORY: Screening encounter. History of nulliparity. Personal history of left breast cancer status post lumpectomy in 1998. TECHNIQUE: (B) - Bilateral CC and MLO views were obtained. COMPARISON: 07/05/2018 through 06/19/2015. PARENCHYMAL PATTERN: (D) - The breast(s) demonstrate(s) heterogeneously dense fibroglandular parenchyma. FINDINGS: Post surgical treatment changes in the left breast are redemonstrated without significant interval change. There are coarse typically benign calcifications. There are no suspicious masses, calcifications, or areas of distortion. IMPRESSION: Benign findings. BI-RADS category 2. RECOMMENDATION: (ANNUAL) - Recommend routine annual screening mammography. BI-RADS CATEGORY: (2) - Benign Findings. STANDARD QUALIFYING STATEMENTS: 1. This examination was not reviewed with the aid of Computer-Aided Detection (CAD). 2. A negative or benign imaging report should not preclude biopsy if clinically suspicious findings are present. 3. Dense breasts may obscure an underlying neoplasm. 4. This examination was reviewed with the aid of 3D breast imaging (tomosynthesis).
== END 2019-07-10 13:19 | disposition home or self-care (01) ==
LOC: DI 13:18
PROVIDERS: ATTEND Internal Medicine
DX: Z12.31 Encounter for screening mammogram for malignant neoplasm of breast (principal); Z08 Encounter for follow-up examination after completed treatment for malignant neoplasm; Z85.3 Personal history of malignant neoplasm of breast
CPT/HCPCS: 77063; 77067

== ENCOUNTER 2020-04-10 09:30 | Outpatient (CLI) | payer MEDICARE, OTHER ==
[2020-04-10 15:59] LABS: BASOPHILS # (AUTO) 0.1 10^3/uL (0.0-0.1); BASOPHILS % (AUTO) 0.4 %; EOSINOPHILS # (AUTO) 0.4 10^3/uL (0.0-0.7); EOSINOPHILS % (AUTO) 3.2 %; HGB - HEMOGLOBIN 13.6 g/dL (12.0-16.0); LYMPHOCYTES # (AUTO) 2.4 10^3/uL (1.5-3.5); LYMPHOCYTES % (AUTO) 20.9 %; MEAN CORPUSCULAR HEMOGLOBIN 32.5 pg (27.0-31.0); MEAN CORPUSCULAR HGB CONC 32.9 g/dL (32.0-36.0); MEAN CORPUSCULAR VOLUME 98.6 fL (81.0-99.0); MEAN PLATELET VOLUME 9.4 fL (7.9-10.8); MONOCYTES # (AUTO) 0.7 10^3/uL (0.0-1.0); MONOCYTES % (AUTO) 6.3 %; NEUTROPHILS # (AUTO) 7.9 10^3/uL (1.5-6.6); NEUTROPHILS % (AUTO) 68.8 %; PLT - PLATELET COUNT 279 10^3/uL (130-450); RED BLOOD COUNT 4.19 10^6/uL (4.20-5.40); RED CELL DISTRIBUTION WIDTH 13.5 % (12.0-15.0); WHITE BLOOD COUNT 11.5 x10^3/uL (4.8-10.8)
== END 2020-04-10 09:31 | disposition home or self-care (01) ==
LOC: LAB.S 09:30
PROVIDERS: ATTEND Internal Medicine
DX: R23.3 Spontaneous ecchymoses (principal)
CPT/HCPCS: 36415; 85025

== ENCOUNTER 2020-04-17 10:44 | Outpatient (CLI) | payer MEDICARE, OTHER ==
--- NOTE | 2020-04-17 17:41 | DEXA Report ---
Reason: OSTEOPENIA Procedure Date: 04/17/2020 Accession Number: [id number] / [id number] Procedure: DEX - Dexa Spine and/or Hip CPT Code: Final Report FULL RESULT: PROCEDURE: Dexa Spine and/or Hip INDICATIONS: OSTEOPENIA TECHNIQUE: Dual energy x-ray absorptiometry (DXA) was performed on a inContact System. Regions measured are the AP Spine, femoral neck, and if needed forearm. COMPARISON: None. FINDINGS: Lumbar Spine: Bone Mineral Density 1.17 g/cm/cm,T score 0.0, normal Hip: Bone Mineral Density 0.754 g/cm/cm,T score -2.0, osteopenia Femoral Neck: Bone Mineral Density 0.711 g/cm/cm, T score -2.4, osteopenia (T score greater or equal to -1.0: NORMAL) (T score from -1.1 to -2.4: OSTEOPENIA) (T score less than or equal to -2.5 to: OSTEOPOROSIS) Impression: Hip osteopenia. Patients with diagnosis of osteoporosis or osteopenia should have regular bone mineral density assessment. For those eligible for Medicare, routine testing is allowed once every 2 years. Testing frequency can be increased for patients who have rapidly progressing disease or for those who are receiving medical therapy to restore bone mass. Reviewed by: Zully Kelly MD, PhD on 04/17/2020 5:40 PM PDT Approved by: Zully Kelly MD, PhD on 04/17/2020 5:40 PM PDT Station ID: [id number]
== END 2020-04-17 10:45 | disposition home or self-care (01) ==
LOC: DI 10:44
PROVIDERS: ATTEND Internal Medicine
DX: M85.88 Other specified disorders of bone density and structure, other site (principal)
CPT/HCPCS: 77080

== ENCOUNTER 2020-06-07 13:46 | Outpatient (CLI) | payer MEDICARE, OTHER ==
[2020-06-07] MEDS ORDERED: GADOBUTROL 7.5 MMOL/7.5 ML VIAL ONE (14:06)
[2020-06-07] MEDS: GADOBUTROL 7.5 MMOL/7.5 ML VIAL IVP ONE (14:42)
--- NOTE | 2020-06-09 11:43 | MRI Report ---
PROCEDURE: Lumbar Spine W/WO INDICATIONS: LOW BACK PAIN CONTRAST: IV CONTRAST: Magnevist ml: 5 TECHNIQUE: Noncontrast sagittal T1 spin echo and T2 fast spin echo, sagittal STIR, axial T1 and T2 fast spin ech o through the lumbar spine. In cases with scoliosis, additional coronal T2 fast spin echo may be per formed. After the administration of contrast, sagittal and axial T1 spin echo with fat saturation th rough the lumbar spine. COMPARISON: None. FINDINGS: Image quality: Excellent. Alignment and curvature: There is normal bony alignment. Bones: Postsurgical changes compatible with L4-L5 PLIF. There is trace L4-L5 anterolisthesis and L3-L 4 retrolisthesis. Mild reactive endplate changes noted adjacent to the L2-L3, L3-L4 and L4-L5 discs. No acute vertebral body compression fractures. No suspicious marrow enhancement. Spinal cord: Conus medullaris terminates at the L1 level. Visualized spinal cord demonstrates ki l signal, without suspicious enhancement. Paraspinous soft tissues: No paravertebral masses or abnormal enhancement. T12-L1: Slight loss of disc signal. No central stenosis. No neural foraminal narrowing. No neural co mpression.. L1-L2: Slight loss of disc signal. No central stenosis. No neural foraminal narrowing. No neural c ompression. L2-L3: Loss of disc signal and height. Mild, diffuse disc bulge. Mild bilateral facet hypertrophy. Mild narrowing of the central canal. Mild to moderate bilateral neural foraminal narrowing. No neura l compression. L3-L4: Loss of disc signal and height. Mild to moderate diffuse disc bulge. Moderate bilateral face t hypertrophy. Mild ligamentum flavum hypertrophy. Severe narrowing of the central canal with slight compression of the traversing nerve roots of the cauda equina. Moderate to severe right and severe le ft neural foraminal narrowing with compression of the exiting left L4 nerve root. L4-L5: Status post fusion. No central stenosis. Mild bilateral neural foraminal narrowing. No neura l compression. L5-S1: Loss of disc signal. Mild, diffuse disc bulge. Moderate bilateral facet hypertrophy. No cent ral stenosis. Mild right and severe left neural foraminal narrowing with compression of the exiting l eft L5 nerve root. IMPRESSION: 1. Status post L4-L5 PLIF. 2. Multilevel degenerative disc disease. 3. Multilevel facet arthropathy. 4. Severe L3-L4 central canal narrowing with slight compression of the nerve roots of the cauda equin a. 5. Severe left L3-L4 and L5-S1 neural foraminal narrowing with compression of the exiting left L3 ner ve root and exiting left L5 nerve root. 6. No suspicious postcontrast enhancement. Reviewed by: Zully Kelly MD, PhD on 06/09/2020 11:41 AM PDT Approved by: Zully Kelly MD, PhD on 06/09/2020 11:41 AM PDT Station ID: [id number]
== END 2020-06-07 13:47 | disposition home or self-care (01) ==
LOC: DI 13:46
PROVIDERS: ATTEND Internal Medicine
DX: M54.5 Low back pain (principal); Z98.1 Arthrodesis status; M51.36 Other intervertebral disc degeneration, lumbar region; M48.061 Spinal stenosis, lumbar region without neurogenic claudication; M51.37 Other intervertebral disc degeneration, lumbosacral region; M48.07 Spinal stenosis, lumbosacral region; M47.816 Spondylosis without myelopathy or radiculopathy, lumbar region; M47.817 Spondylosis without myelopathy or radiculopathy, lumbosacral region
CPT/HCPCS: 72158; A9585

== ENCOUNTER 2020-08-21 10:14 | Outpatient (CLI) | payer MEDICARE, OTHER ==
--- NOTE | 2020-08-21 10:54 | XRAY Report ---
PROCEDURE: Lumbar Spine 2 View INDICATIONS: S/P LUMBAR FUSION TECHNIQUE: 2 views of the lumbar spine were acquired. COMPARISON: None. FINDINGS: Bones: 5 sxi-ent-qrzffyn vertebrae are present. There is normal bony alignment. No vertebral body compression fractures. No suspicious bony lesions. Remote posterior lateral ellie and pedicle screw fi xation of L3-L5. Surgical hardware intact. Soft tissues: Overlying bowel gas pattern is normal. No suspicious soft tissue calcifications. IMPRESSION: Expected appearance of lumbar fusion hardware. No evidence of acute bony abnormality of the lumbar spine. Reviewed by: Nic Rodriguez MD on 08/21/2020 10:53 AM PST Approved by: Nic Rodriguez MD on 08/21/2020 10:53 AM PST Station ID: [id number]
== END 2020-08-21 10:15 | disposition home or self-care (01) ==
LOC: DI 10:14
PROVIDERS: ATTEND Neurological Surgery
DX: Z98.1 Arthrodesis status (principal)
CPT/HCPCS: 72100

== ENCOUNTER 2020-09-18 11:05 | Outpatient (CLI) | payer MEDICARE, OTHER ==
--- NOTE | 2020-09-18 12:31 | XRAY Report ---
PROCEDURE: Lumbar Spine w/Flex/Ext INDICATIONS: S/P LUMBAR FUSION, LUMBAR RADICULOPATHY/STENOSIS TECHNIQUE: 2 views of the lumbar spine acquired. COMPARISON: X-ray lumbar spine, 08/21/2020. MRI lumbar spine, 06/07/2020. FINDINGS: Bones: 5 [id number]-ipqqnio vertebrae are present. There is grade 1 anterolisthesis of L5 on S1. Post erior fusion at L3-L5 appear stable with intact hardware. No vertebral body compression fractures. N o suspicious bony lesions. There is moderate degenerative disease at L2-L3 and mild degenerative dis ease at L5-S1. Soft tissues: Overlying bowel gas pattern is normal. Vascular calcifications consistent with atheros clerosis. Flexion/extension: There is decreased range of motion, with preserved alignment. IMPRESSION: 1. Stable post surgical changes with posterior fusion at L3-L5. 2. Grade 1 anterolisthesis of L5 on S1. There is no significant change in alignment with flexion and extension. Reviewed by: Sergio Taylor MD on 09/18/2020 12:29 PM PST Approved by: Sergio Taylor MD on 09/18/2020 12:29 PM PST Station ID: [id number]
== END 2020-09-18 11:06 | disposition home or self-care (01) ==
LOC: DI 11:05
PROVIDERS: ATTEND Neurological Surgery
DX: M54.16 Radiculopathy, lumbar region (principal); M48.062 Spinal stenosis, lumbar region with neurogenic claudication; Z98.1 Arthrodesis status

== ENCOUNTER 2020-10-21 13:59 | Outpatient (CLI) | payer MEDICARE, OTHER ==
--- NOTE | 2020-10-21 16:56 | XRAY Report ---
PROCEDURE: Lumbar Spine 2 View Bending INDICATIONS: LUMBAR RADIOCULOPATHY TECHNIQUE: 4 views of the lumbar spine acquired. COMPARISON: None. FINDINGS: Bones: 5 [id number]-grn-mtkogrl vertebrae are present. There is normal bony alignment. No vertebral body compression fractures. No suspicious bony lesions. There are postoperative changes of pedicular scr ew and ellie fixation from L3 through L5. Facet arthrosis is present at L5-S1. Soft tissues: Overlying bowel gas pattern is normal. No suspicious soft tissue calcifications. Flexion/extension: There is grade 1 anterolisthesis of L4-5 with no instability with flexion or exte nsion. IMPRESSION: 1. Postoperative changes of the lower lumbar spine. 2. Facet arthrosis at L5-S1 with grade 1 anterolisthesis. 3. No instability with flexion or extension. Reviewed by: Paul Méndez on 10/21/2020 4:54 PM PST Approved by: Paul Méndez on 10/21/2020 4:54 PM PST Station ID: [id number]
== END 2020-10-21 14:00 | disposition home or self-care (01) ==
LOC: DI 13:59
PROVIDERS: ATTEND Neurological Surgery
DX: M47.27 Other spondylosis with radiculopathy, lumbosacral region (principal); Z98.1 Arthrodesis status

== ENCOUNTER 2020-11-06 11:02 | Outpatient (CLI) | payer MEDICARE, OTHER ==
--- NOTE | 2020-11-07 09:55 | Mammography Report ---
BILATERAL DIGITAL SCREENING MAMMOGRAM 3D/2D: 11/06/2020 CLINICAL: Routine screening. Personal history of left breast cancer. Comparison is made to exams dated: 07/10/2019 mammogram, 07/05/2018 mammogram, 06/21/2017 mammogram, 05/18 mammogram, 06/19/2015 mammogram, and 02/06/2015 mammogram - [facility]. The ti ssue of both breasts is extremely dense, which lowers the sensitivity of mammography. There are benign post operative findings in the left breast. No significant masses, calcifications, or other findings are seen in either breast. There has been no significant interval change. IMPRESSION: BENIGN There is no mammographic evidence of malignancy. A 1 year screening mammogram is recommended. This exam was interpreted at Station ID: [id number]. NOTE: For mammograms, a report in lay terms will be sent to the patient. Approximately 15% of breast malignancies will not be visualized mammographically. In the management of a palpable breast mass, a negative mammogram must not discourage biopsy of a clinically suspicious lesion. Electronically Signed By: Bryn Lyons M.D. ddp/penrad:11/06/2020 11:59:30 ACR BI-RADS Category 2: Benign Finding(s) 3342F PARENCHYMAL PATTERN: (VD) - The breast(s) demonstrate(s) extremely dense parenchyma, limiting the sen sitivity of mammography. BI-RADS CATEGORY: (2) - 2 RECOMMENDATION: (ANNUAL) - Recommend routine annual screening mammography. [id number] 1 year screening LATERALITY: (B)
== END 2020-11-06 11:03 | disposition home or self-care (01) ==
LOC: DI.N 11:02
PROVIDERS: ATTEND Internal Medicine
DX: Z12.31 Encounter for screening mammogram for malignant neoplasm of breast (principal); Z08 Encounter for follow-up examination after completed treatment for malignant neoplasm; Z85.3 Personal history of malignant neoplasm of breast

== ENCOUNTER 2020-12-04 11:08 | Outpatient (CLI) | payer MEDICARE, OTHER ==
--- NOTE | 2020-12-04 14:08 | XRAY Report ---
PROCEDURE: Lumbar Spine 2 View INDICATIONS: LUMBAR RADICULOPATHY TECHNIQUE: 2 views of the lumbar spine were acquired. COMPARISON: X-ray lumbar spine 10/21/2020 FINDINGS: Bones: 5 [id number]-fun-yzykmnt vertebrae are present. There is posterior fusion from L3 through S1. Hardw are is intact without evidence of fracture or periprosthetic loosening. There is unchanged trace retr olisthesis of L3 on L4. Trace retrolisthesis is present of L5 on S1, unchanged.. No vertebral body c ompression fractures. No suspicious bony lesions. Soft tissues: Overlying bowel gas pattern is normal. No suspicious soft tissue calcifications. IMPRESSION: Stable appearance of posterior fusion as well as L3 on L4 retrolisthesis of L5 on S1 ant erolisthesis. Reviewed by: Laly Perez MD on 12/04/2020 1:17 PM PST Approved by: Laly Perez MD on 12/04/2020 1:17 PM PST Station ID: [id number]
== END 2020-12-04 11:09 | disposition home or self-care (01) ==
LOC: DI 11:08
PROVIDERS: ATTEND Neurological Surgery
DX: M54.16 Radiculopathy, lumbar region (principal); M48.062 Spinal stenosis, lumbar region with neurogenic claudication; Z98.1 Arthrodesis status

== ENCOUNTER 2020-12-23 13:25 | Outpatient (CLI) | payer MEDICARE, OTHER ==
--- NOTE | 2020-12-23 14:03 | XRAY Report ---
PROCEDURE: Lumbar Spine 2 View INDICATIONS: LUMBAR RADICULOPATHY TECHNIQUE: 3 views of the lumbar spine were acquired. COMPARISON: None. FINDINGS: Bones: Posterior fusion of L3 L5 has been performed. There is mild stable grade 1 retrolisthesis of L3 on L4. There is mild, grade 1 anterolisthesis of L2 on L3 with flexion, which reduces with extensi on and neutral positioning. Soft tissues: Overlying bowel gas pattern is normal. No suspicious soft tissue calcifications. IMPRESSION: 1. Postsurgical sequelae. 2. Mild instability at L2-L3. Reviewed by: Bean Leblanc MD on 12/23/2020 2:02 PM PST Approved by: Bean Leblanc MD on 12/23/2020 2:02 PM PST Station ID: [id number]
== END 2020-12-23 13:26 | disposition home or self-care (01) ==
LOC: DI 13:25
PROVIDERS: ATTEND Neurological Surgery
DX: M54.16 Radiculopathy, lumbar region (principal); M54.9 Dorsalgia, unspecified; Z98.1 Arthrodesis status; M53.2X7 Spinal instabilities, lumbosacral region